=== PATIENT | female | born 1950 | race Caucasian/White ===

== ENCOUNTER → 2017-02-18 | Day surgery (SDC) | payer MEDICARE ==
[~2017-02-18] MED LIST: BUPIVACAINE HCL PF 0.5% 10 ML VIAL ONE; ENAL10TA7 PO; ENAL20TA PO; ENTERIC ASPIRIN PO; GLUCTAB PO; LACTATED RINGER'S 1000 ML INJ 1,000 ML ONE; LANO0.2510 PO; METO50 PO; MIDAZOLAM HCL 2 MG/2 ML VIAL ONE; MULTCAP13 PO; OMEGA 3 PO; ONDANSETRON HCL 4 MG/2 ML VIAL IV PUSH ONE; PROPOFOL 500 MG/50 ML BTL IV ONE; PROT40TA PO; [UNRECOGNIZED DRUG - CODE] PO; [UNRECOGNIZED DRUG - OTHER] PO; ceFAZolin INJ 1,000 MG VIAL ONE
--- NOTE | 2017-02-18 23:54 | MP ---
cc: SHIRA JACK DATE OF SURGERY: 02/18/2017 PREOPERATIVE DIAGNOSIS: Left hand long finger stenosing tenosynovitis (trigger finger). POSTOPERATIVE DIAGNOSIS Left hand long finger stenosing tenosynovitis (trigger finger). SURGEON Dr. Heather Jack. SUPERVISOR PREPRESS: Staff. PROCEDURE: Left hand long finger A1 vamsi tendon sheath incision for trigger finger. ESTIMATED BLOOD LOSS: Minimal ANESTHESIA: General anesthesia. TOURNIQUET TIME: 7 minutes at 250 mmHg. DESCRIPTION OF PROCEDURE: The patient was brought back to operative theater. General anesthesia was administered. She received intravenous Ancef. The left upper extremity was prepped and draped in the usual sterile fashion. We gave infiltration of 0.25% Marcaine without epinephrine into the palmar aspect of the left hand by the third metacarpal. The arm was exsanguinated. Tourniquet was raised. Standard oblique incision was made over the A1 vamsi. We then used dissecting scissors to spread apart the deep fat to identify the A1 vamsi. We protected the digital nerves. We then incised the A1 vamsi in the central portion. We found that there was some fluid within the tendon sheath which was clear and yellow. We expressed approximately 1 to 2 cc of this. There was no sign of infection. We resected some portions of the A1 vamsi to reduce the chance of recurrence. We put the finger through a range of motion and found the tendon to be intact. There was minimal tendinosis of the tendon. The tourniquet was released. Hemostasis was achieved. The wound was irrigated. We then closed the skin with 2-0 Vicryl followed by 3-0 nylon and a custom dressing was applied. Shira Jack MD /FARHAD /2:17 PM /11:48 PM
== END | disposition home or self-care (01) ==
LOC: ESDC 12:43
PROVIDERS: ATTEND Orthopaedic Surgery
DX: M65.332 Trigger finger, left middle finger (principal)
CPT/HCPCS: 01810; 26055; J0690; J2250; J2405; J7120